=== PATIENT | male | born 1940 | race Caucasian/White ===

== ENCOUNTER 2017-09-18 11:47 | Day surgery (SDC) | payer OTHER ==
[~2017-09-18] VITALS: Ht 180.3 cm; Wt 113.8 kg
[~2017-09-18 11:47] MED LIST: Aspirin EC81 MG PO; Daily Multiple1 EACH PO; HYDCHL25 PO; KRILL OIL500 MG; LISI20 PO; OMEPRAZOLE MAGN20 MG PO; SIMV10 PO
== END 2017-09-18 14:38 | disposition home or self-care (01) ==
LOC: ORSCSDS 11:47
PROVIDERS: Internal Medicine Gastroenterology
PROC: 0DBC8ZX Excision of Ileocecal Valve, Via Natural or Artificial Opening Endoscopic, Diagnostic (ICD-10-PCS; principal; 2017-09-18 13:00)
PROC: 0DB58ZX Excision of Esophagus, Via Natural or Artificial Opening Endoscopic, Diagnostic (ICD-10-PCS; principal; 2017-09-18 13:00)
DX: K22.70 Barrett's esophagus without dysplasia (principal); K21.0 Gastro-esophageal reflux disease with esophagitis; K44.9 Diaphragmatic hernia without obstruction or gangrene; Z86.010 Personal history of colon polyps; D12.0 Benign neoplasm of cecum; K57.30 Diverticulosis of large intestine without perforation or abscess without bleeding; I10 Essential (primary) hypertension; G47.33 Obstructive sleep apnea (adult) (pediatric); E66.01 Morbid (severe) obesity due to excess calories; Z68.36 Body mass index [BMI] 36.0-36.9, adult; Z79.899 Other long term (current) drug therapy; Z79.82 Long term (current) use of aspirin
CPT/HCPCS: 88305; J7120

== ENCOUNTER 2020-12-12 12:47 | Day surgery (SDC) | payer OTHER ==
[~2020-12-12] VITALS: Ht 177.8 cm; Wt 116.2 kg
== END 2020-12-12 15:10 | disposition home or self-care (01) ==
LOC: ORSCSDS 12:47
PROVIDERS: Internal Medicine Gastroenterology
PROC: 0DB58ZX Excision of Esophagus, Via Natural or Artificial Opening Endoscopic, Diagnostic (ICD-10-PCS; principal; 2020-12-12 14:15)
DX: K22.70 Barrett's esophagus without dysplasia (principal); K44.9 Diaphragmatic hernia without obstruction or gangrene; E66.9 Obesity, unspecified; I10 Essential (primary) hypertension; Z68.36 Body mass index [BMI] 36.0-36.9, adult; Z79.82 Long term (current) use of aspirin; Z79.899 Other long term (current) drug therapy
CPT/HCPCS: 88305; J2001; J2704; J7120

== ENCOUNTER → 2022-03-03 | Outpatient (CLI) | payer OTHER | LOC: LAB SHORT 15:30 → LAB 15:30 → LAB SHORT 03-04 11:01 | DX: R30.0 Dysuria (principal) | CPT/HCPCS: 87086 ==

== ENCOUNTER 2024-05-17 11:20 | Day surgery (SDC) | payer OTHER ==
[~2024-05-17] VITALS: Ht 177.8 cm; Wt 122.5 kg
[~2024-05-17 11:20] MED LIST changes: +ATORVASTATIN CA20 MG PO; -Daily Multiple1 EACH PO; +Lactated Ringer's 1,000 ML IV ONE; +MULVITA PO; +NUBEQA300 MG PO; +OMEP20ER PO; +PRED AC-MOXI-BRO5 M1; +VITAMIN D350 MC3 PO
[2024-05-17] MEDS ORDERED: Lactated Ringer's 1,000 ML IV ONE (12:15)
--- NOTE | 2024-05-17 12:29 | NUR ---
05/17/24 1229 Angela Cornell PT. DENIES ANY PAIN.
[2024-05-17] MEDS ORDERED: propofoL 50 ML IV ONE (12:43)
[2024-05-17 13:40] VITALS: BP 130/71
== END 2024-05-17 13:35 | disposition home or self-care (01) ==
LOC: ORSCSDS 11:20
PROVIDERS: Internal Medicine Gastroenterology
PROC: 0DB58ZX Excision of Esophagus, Via Natural or Artificial Opening Endoscopic, Diagnostic (ICD-10-PCS; principal; 2024-05-17 13:15)
DX: K22.70 Barrett's esophagus without dysplasia (principal); Z80.0 Family history of malignant neoplasm of digestive organs; K57.30 Diverticulosis of large intestine without perforation or abscess without bleeding; F41.9 Anxiety disorder, unspecified; I10 Essential (primary) hypertension; E78.5 Hyperlipidemia, unspecified; Z79.899 Other long term (current) drug therapy
CPT/HCPCS: 88305; J2704; J7120

== ENCOUNTER 2025-02-28 06:54 | Day surgery (SDC) | payer OTHER ==
[2025-02-07 11:14] LABS: BASOPHILS ABSOLUTE AUTO 0.02 K/mm3 (0.00-0.23); BASOPHILS PERCENT AUTO 0 % (0-2); EOSINOPHILS ABSOLUTE AUTO 0.13 K/mm3 (0.00-0.68); EOSINOPHILS PERCENT AUTO 2 % (0-6); Hematocrit 40.2 % (37.0-53.0); Hemoglobin 13.6 g/dL (13.5-17.5); IMMATURE GRAN ABSOLUTE AUTO 0.01 K/mm3 (0.00-0.10); IMMATURE GRAN PERCENT AUTO 0 % (0-1); LYMPHOCYTES ABSOLUTE AUTO 1.45 K/mm3 (0.84-5.20); LYMPHOCYTES PERCENT AUTO 26 % (21-46); MONOCYTES ABSOLUTE AUTO 0.50 K/mm3 (0.16-1.47); MONOCYTES PERCENT AUTO 9 % (4-13); Mean Corpuscular HGB Conc 33.8 g/dL (31.5-36.5); Mean Corpuscular Volume 90 fL (80-100); NEUTROPHILS ABSOLUTE AUTO 3.41 K/mm3 (1.96-9.15); NEUTROPHILS PERCENT AUTO 62 % (41-73); NRBC ABSOLUTE 0.00 K/mm3 (0.00-0.02); NRBC Auto 0.0 /100 WBC (0.0-0.2); Platelet Count 163 K/mm3 (150-400); RDW Coefficient Variation 13.1 % (11.7-14.2); RDW Standard Deviation 42.6 fL (35.1-46.3)
[2025-02-07 12:19] LABS: Anion Gap 7.0 mmol/L (3-11); Blood Urea Nitrogen 23.0 mg/dL (8-24); CO2, Blood 25.0 mmol/L (21-32); Calcium, Blood 8.8 mg/dL (8.5-10.1); Chloride, Blood 115.0 mmol/L (98-108); Creatinine, Blood 1.35 mg/dL (0.60-1.20); Glucose, Blood 110.0 mg/dL (70-99); Potassium, Blood 3.8 mmol/L (3.5-5.5); Sodium, Blood 143.0 mmol/L (136-145)
[~2025-02-28] VITALS: Ht 177.8 cm; Wt 123.6 kg
[2025-02-28] VITALS (11 sets, daily range): BP systolic 132–153; BP diastolic 66–86
[~2025-02-28 06:54] MED LIST changes: +CALCIUM CITRAT250 MG PO; +CeFAZolin Sodium 2,000 MG in NS 100 ML IV SCH; +Chlorhexidine Mouth Care 15 ML UDC MT SCH; -KRILL OIL500 MG; +KRILL OIL500 MG PO; -LISI20 PO; -Lactated Ringer's 1,000 ML IV ONE; -OMEPRAZOLE MAGN20 MG PO; +Preservision S1 EACH PO; +Ropivacaine 0.5% HCl/Pf 123.125 MG,EPINEPHrine HCL 0.25 MG,Ketorolac Tromethamine 15 MG... INFIL SCH; +THERA-D2000 UNIT PO; +Tranexamic Acid 100 ML IV SCH; -VITAMIN D350 MC3 PO; +Zestril40 MG PO
[2025-02-28] MEDS ORDERED: CeFAZolin Sodium 3,000 MG in NS 100 ML IV SCH (07:15)
[2025-02-28] MEDS ORDERED: Rocuronium Bromide 10 MG/ML 5ML Injection IV ONE ×2 (08:15→09:29)
[2025-02-28] MEDS ORDERED: FentaNYL Citrate 50 MCG/ML 2 ML Injection ONE (08:15)
[2025-02-28] MEDS ORDERED: Dexamethasone Sod Phos 10 MG/ML 1ML VIAL ONE (08:15)
[2025-02-28] MEDS ORDERED: Ondansetron HCl 2 MG / ML 2ML Vial ONE (08:15)
[2025-02-28] MEDS ORDERED: Ketorolac Tromethamine 30mg Vial ONE (08:16)
--- NOTE | 2025-02-28 08:21 | NUR ---
Ambulatory in Day Surgery WITH STEADY GAIT. History, Chart, Medications and Allergies reviewed before start of procedure. Pre-Op teaching done. Pt verbalizes understanding. Patient States Post-Procedure ride home has been arranged WITH SPOUSE. ALL BELONGINGS PLACED UNDER GURN. [place] BAND REMAINS IN PLACE WITH PAPER TAPE OVER IT. REFUSAL SIGNED DUE TO BE UNABLE TO REMOVE THE BAND. FAMILY AT BEDSIDE DURING PRE OP ADMISSION.
[2025-02-28] MEDS ORDERED: Prochlorperazine Edisylate 10 mg Vial IV PRN (08:30)
[2025-02-28] MEDS ORDERED: Albuterol 2.5 MG/3 ML VIAL INH PRN (08:30)
[2025-02-28] MEDS ORDERED: FentaNYL Citrate 50 MCG/ML 2 ML Injection IV PRN (08:30)
[2025-02-28] MEDS ORDERED: HYDROmorphone HCl/Pf 1MG SYR IV PRN ×2 (08:30→09:35)
[2025-02-28] MEDS ORDERED: HYDROmorphone HCl/Pf 1MG SYR ONE (09:40)
[2025-02-28] MEDS ORDERED: Magnesium Hydroxide Conc 10 ML UDC PO PRN (09:40)
[2025-02-28] MEDS ORDERED: Metoclopramide HCl 5MG / ML 2ML Vial IV PRN (09:40)
[2025-02-28] MEDS ORDERED: Ondansetron HCl 2 MG / ML 2ML Vial IV PRN (09:40)
[2025-02-28] MEDS ORDERED: Sugammadex Sodium 200 MG/2ML SDV (100 MG/ML) ONE (10:00)
--- NOTE | 2025-02-28 11:33 | NUR ---
POST OP ARRIVAL TO SURGICAL UNIT VIA HOSPITAL BED. ALERT, ORIENTED, DENIES PAIN. ASSESSMENT CHARTED. DENIES N/V SO SNACKS & DRINKS GIVEN. WILL WEAN O2 APPROP. CRYOTHERAPY IN PLACE.
[2025-02-28] MEDS ORDERED: CeFAZolin Sodium 2,000 MG in NS 100 ML IV SCH (16:00)
[2025-02-28] MEDS ORDERED: ASPI81CH PO (16:23)
--- NOTE | 2025-02-28 16:35 | NUR ---
DISCHARGE PT HAS WORKED w/ THERAPY. PAIN WELL CONTROLLED. EATING, DRINKING, & VOIDED WELL. POLAR PACK SENT w/ PT. ESCORTED OUT VIA W/C.
[2025-02-28] MEDS ORDERED: Ketorolac Tromethamine 15mg Vial IV SCH (18:00)
[2025-03-01] MEDS ORDERED: Cholecalciferol 1000 Unit Tablet (=25MCG) PO SCH (09:00)
[2025-03-01] MEDS ORDERED: Multivitamins 1 Tab PO SCH (09:00)
== END 2025-02-28 16:38 | disposition home or self-care (01) ==
LOC: ORSCMMR 06:54 → ORD 08:15 → ORSCMMR 08:15 → SURS 11:25 → ORSCMMR 16:38
PROVIDERS: Orthopaedic Surgery
PROC: 0SRD0JA Replacement of Left Knee Joint with Synthetic Substitute, Uncemented, Open Approach (ICD-10-PCS; principal; 2025-02-28 08:15)
DX: M17.12 Unilateral primary osteoarthritis, left knee (principal); I10 Essential (primary) hypertension; G47.33 Obstructive sleep apnea (adult) (pediatric); K21.9 Gastro-esophageal reflux disease without esophagitis; Z79.899 Other long term (current) drug therapy; E66.9 Obesity, unspecified; Z68.39 Body mass index [BMI] 39.0-39.9, adult; Z96.643 Presence of artificial hip joint, bilateral
CPT/HCPCS: 36415; 73560-LT; 80048; 85025; 93005; 93010; 97110; 97116; 97161; 97530; A9270; C1713; C1776; J0165; J0690; J0735; J1100; J1171; J1885; J2405; J2704; J2795; J3010; J7120